=== PATIENT | female | born 1985 | race Caucasian/White ===

== ENCOUNTER 2016-06-26 14:19 | Outpatient (CLI) ==
--- NOTE | 2016-06-26 15:19 | US ---
EXAM: Thyroid ultrasound History: Thyromegaly. Technique: Multiple sonographic images through the thyroid gland were obtained. Color duplex Doppl er was used to interrogate vascular flow. Findings: The right lobe of the thyroid measures 5.8 cm x 1.2 cm x 1.8 cm and is without discrete nodule ident ified. The thyroid isthmus measures 0.3 cm in thickness. The left lobe of the thyroid measures 4.4 cm x 1.3 cm x 1.3 cm and demonstrates a benign 0.3 cm vishal oid cyst. No extrathyroidal masses identified. The thyroid gland is not hypervascular. Impression: A small benign colloid cyst within the left thyroid lobe. The examination is otherwise unremarkable.
== END 2016-06-26 14:20 | disposition home or self-care (01) ==
LOC: RAD 14:19
PROVIDERS: ATTEND Nurse Practitioner
DX: E01.0 Iodine-deficiency related diffuse (endemic) goiter (principal)